=== PATIENT | female | born 1935 | race Caucasian/White ===

== ENCOUNTER 2017-05-11 15:32 | Inpatient (IN) | payer MEDICARE, BC ==
[2017-05-11] MEDS ORDERED: DILTIAZEM 5 MG/ML SOL IV ONE ×2 (16:07→16:16)
[2017-05-11 16:19] LABS: HEMATOCRIT 46 % (35-47); MEAN CORPUSCULAR HGB CONC 35.8 gm/dl (32.0-36.0); MEAN CORPUSCULAR VOLUME 92 fL (81-99)
[2017-05-11] MEDS: SODIUM CHLORIDE 0.9% 1000ML 1,000 ML IV SCH ×3 (16:20→19:14)
[2017-05-11] MEDS ORDERED: METOPROLOL TARTRATE 5 MG/5 ML SOL IV ONE ×2 (16:33→16:35)
[2017-05-11 16:34] LABS: BASOPHILS % (MANUAL) 0 % (0-3); EOSINOPHILS % (MANUAL) 0 % (0-9); LYMPHOCYTES % (MANUAL) 24 % (10-50); NORMAL RBCS PRESENT
[2017-05-11 16:35] LABS: ALBUMIN 2.6 gm/dl (3.4-5.0); ALT 39 IU/L (14-63); CALCIUM 9.2 mg/dl (8.5-10.1); GLOM FILT RATE 59 mL/min (>60); POTASSIUM 3.8 mMol/L (3.5-5.1); SODIUM 137 mMol/L (136-145); THYROID STIMULATING HORMONE 3.091 uIU/ml (0.358-3.740)
[2017-05-11] MEDS ORDERED: CEFTRIAXONE 1 GM PDS 1 GM in SODIUM CHLORIDE 0.9% 100 ML 100 ML IV ONE (17:17)
[2017-05-11] MEDS ORDERED: SODIUM CHLORIDE 0.9% 100 ML SOL IV SCH (17:30)
[2017-05-11] MEDS ORDERED: CEFTRIAXONE 1 GM (PREMIX) 1 GM/50 ML SOL IV SCH (17:30)
[2017-05-11] MEDS: WARFARIN SODIUM 2.5 MG TAB PO SCH (17:51)
[2017-05-11 17:59] LABS: APPEARANCE,URINE Clear; BILIRUBIN,URINE NEGATIVE (NEGATIVE); COLOR,URINE Light yellow; GLUCOSE, URINE (UA) NEGATIVE (NEGATIVE); KETONES,URINE NEGATIVE (NEGATIVE); LEUKOCYTE ESTERASE ,URINE NEGATIVE (NEGATIVE); NITRATE,URINE NEGATIVE (NEGATIVE); OCCULT BLOOD,URINE TRACE INTACT (NEG-TRACE); UROBILINOGEN,URINE 0.2 (0.2-1.0 EU)
[2017-05-11 18:25] LABS: RBC,URINE 0-2 (0-3AV/HPF)
[2017-05-11 18:26] LABS: WBC,URINE 0-2 (0-5AV/HPF)
[2017-05-11] MEDS: DILTIAZEM ER 120 MG C24 PO SCH (18:39)
[2017-05-11] MEDS: METOPROLOL TARTRATE 5 MG/5 ML SOL IV ONE ×2 (18:51→19:08)
[2017-05-11] MEDS ORDERED: POTASSIUM CHLORIDE 2 MEQ/ML SOL IV ONE (20:11)
[2017-05-11] MEDS ORDERED: DILTIAZEM 5 MG/ML 125 MG in SODIUM CHLORIDE 0.9% 100 ML 100 ML IV SCH (20:15)
[2017-05-11] MEDS: SOTALOL HYDROCHLORIDE PO SCH (20:29)
[2017-05-11] MEDS ORDERED: ZOLPIDEM TARTRATE 5 MG TAB PO ONE (21:36)
[2017-05-12] MEDS: SODIUM CHLORIDE/KCL 20MEQ 1,000 ML IV SCH ×2 (05:14→15:28)
[2017-05-12] MEDS: SODIUM CHLORIDE 0.9% 1000ML 1,000 ML IV SCH ×3 (07:23→07:27)
[2017-05-12 07:43] LABS: ALBUMIN 2.4 gm/dl (3.4-5.0); ALT 31 IU/L (14-63); CALCIUM 8.6 mg/dl (8.5-10.1); GLOM FILT RATE 76 mL/min (>60); POTASSIUM 4.1 mMol/L (3.5-5.1); SODIUM 142 mMol/L (136-145)
[2017-05-12 08:16] VITALS: RESP 18
[2017-05-12] MEDS: SOTALOL HYDROCHLORIDE PO SCH ×2 (08:42→20:48)
[2017-05-12] MEDS: CITALOPRAM 20 MG TAB PO SCH (08:43)
[2017-05-12] MEDS: AMLODIPINE 5 MG TAB PO SCH (08:43)
[2017-05-12] MEDS: ATORVASTATIN 10 MG TAB PO SCH (08:43)
[2017-05-12] MEDS: DILTIAZEM ER 120 MG C24 PO SCH (08:45)
[2017-05-12] MEDS ORDERED: ZOLPIDEM TARTRATE 5 MG TAB PO PRN (09:54)
[2017-05-12] MEDS: CEPHALEXIN 250 MG/5 ML BOTTLE PO SCH ×2 (12:20→17:44)
[2017-05-12] MEDS: WARFARIN SODIUM 2.5 MG TAB PO SCH (17:43)
[2017-05-13] MEDS: SODIUM CHLORIDE/KCL 20MEQ 1,000 ML IV SCH (00:08)
[2017-05-13] MEDS: CEPHALEXIN 250 MG/5 ML BOTTLE PO SCH ×2 (00:08→06:06)
[2017-05-13 08:49] VITALS: BP 117/77; PULSE 69; TEMP 97.9; O2SAT 95
[2017-05-13] MEDS: AMLODIPINE 5 MG TAB PO SCH (08:53)
[2017-05-13] MEDS: ATORVASTATIN 10 MG TAB PO SCH (08:53)
[2017-05-13] MEDS: CITALOPRAM 20 MG TAB PO SCH (08:53)
[2017-05-13] MEDS: DILTIAZEM ER 120 MG C24 PO SCH (08:53)
[2017-05-13] MEDS: SOTALOL HYDROCHLORIDE PO SCH (08:53)
[2017-05-13] MEDS ORDERED: WARFARIN SODIUM 2.5 MG TAB PO SCH (18:00)
== END 2017-05-13 11:00 | disposition home or self-care (01) | DRG 309 ==
LOC: ED 15:32 → UNDOADMIN 17:11 → ACUTE CARE 17:11
PROVIDERS: ADMIT Family Medicine; ATTEND Family Medicine
PROC: F01ZDZZ Gait and/or Balance Assessment (ICD-10-PCS; principal; 2017-05-12)
PROC: F01ZBZZ Bed Mobility Assessment (ICD-10-PCS; 2017-05-12)
PROC: F01ZCZZ Transfer Assessment (ICD-10-PCS; 2017-05-12)
DX: I48.91 Unspecified atrial fibrillation (principal); L03.312 Cellulitis of back [any part except buttock and flank]; I95.9 Hypotension, unspecified; Z79.01 Long term (current) use of anticoagulants; R00.1 Bradycardia, unspecified
CPT/HCPCS: 36415; 80053; 81001; 83735; 84443; 84484; 85007; 85027; 85610; 85730; 93005; 93012; 96365; 96374; 96375; 99070; 99221; 99285; J0696; J3480

== ENCOUNTER 2017-05-25 12:44 | Emergency (ER) | payer MEDICARE, BC ==
[2017-05-25] MEDS ORDERED: NITROGLYCERIN 0.4 MG TAB SL PRN (12:58)
[2017-05-25] MEDS ORDERED: METOPROLOL TARTRATE 5 MG/5 ML SOL IV PRN (12:58)
[2017-05-25] MEDS ORDERED: SODIUM CHLORIDE 0.9% FLUSH 10 ML SOL IV PRN (12:58)
[2017-05-25] MEDS ORDERED: ASPIRIN 81 MG CHEWABLE CTB PO STA (12:58)
[2017-05-25] MEDS ORDERED: METOPROLOL TARTRATE 5 MG/5 ML SOL IV ONE (13:01)
[2017-05-25] MEDS ORDERED: ASPIRIN 81 MG CHEWABLE CTB ONE (13:04)
[2017-05-25 13:06] LABS: HEMATOCRIT 45 % (35-47); MEAN CORPUSCULAR HGB CONC 34.6 gm/dl (32.0-36.0); MEAN CORPUSCULAR VOLUME 93 fL (81-99)
[2017-05-25 13:24] LABS: CALCIUM 8.9 mg/dl (8.5-10.1); GLOM FILT RATE 55 mL/min (>60); POTASSIUM 3.9 mMol/L (3.5-5.1); SODIUM 137 mMol/L (136-145)
[2017-05-25 13:30] LABS: BASOPHILS % (MANUAL) 0 % (0-3); EOSINOPHILS % (MANUAL) 0 % (0-9); LYMPHOCYTES % (MANUAL) 4 % (10-50); NORMAL RBCS PRESENT
[2017-05-25 14:04] LABS: APPEARANCE,URINE Clear; BILIRUBIN,URINE NEGATIVE (NEGATIVE); COLOR,URINE Yellow; GLUCOSE, URINE (UA) NEGATIVE (NEGATIVE); KETONES,URINE NEGATIVE (NEGATIVE); LEUKOCYTE ESTERASE ,URINE NEGATIVE (NEGATIVE); NITRATE,URINE NEGATIVE (NEGATIVE); OCCULT BLOOD,URINE NEGATIVE (NEG-TRACE); UROBILINOGEN,URINE 0.2 (0.2-1.0 EU)
[2017-05-25 14:12] VITALS: O2SAT 94
[2017-05-25 14:13] LABS: RBC,URINE NEGATIVE (0-3AV/HPF); WBC,URINE NEGATIVE (0-5AV/HPF)
[2017-05-25 14:17] VITALS: TEMP 99.4
[2017-05-25 14:58] VITALS: BP 106/70; PULSE 61; RESP 20
== END 2017-05-25 14:51 | disposition home or self-care (01) | DRG 309 ==
LOC: ED 12:44
DX: I48.91 Unspecified atrial fibrillation (principal); L03.312 Cellulitis of back [any part except buttock and flank]
CPT/HCPCS: 71010; 80048; 81001; 82550; 84484; 85007; 85027; 85610; 85730; 93005; 99285

== ENCOUNTER 2017-05-26 09:18 | Emergency (ER) | payer MEDICARE, BC ==
[2017-05-26 09:36] VITALS: TEMP 97.6; O2SAT 97
[2017-05-26 10:13] VITALS: BP 147/85; PULSE 69; RESP 18
== END 2017-05-26 10:05 | disposition home or self-care (01) | DRG 880 ==
LOC: ED 09:18
DX: F41.9 Anxiety disorder, unspecified (principal)
CPT/HCPCS: 93005; 99282; 99283

== ENCOUNTER 2017-11-22 13:56 | Inpatient (IN) | payer MEDICARE, BC ==
[2017-11-22] MEDS ORDERED: METOPROLOL SUCCINATE 50 MG ER TAB PO SCH (14:00)
[2017-11-22] MEDS ORDERED: METOPROLOL TARTRATE 50 MG TAB ONE (14:02)
[2017-11-22] MEDS ORDERED: METOPROLOL TARTRATE 5 MG/5 ML SOL IV ONE ×2 (14:02→14:23)
[2017-11-22] MEDS: METOPROLOL TARTRATE 5 MG/5 ML SOL IV SCH ×3 (14:10→14:25)
[2017-11-22 14:12] LABS: BASOPHILS % (AUTO) 1 % (0-3); EOSINOPHILS % (AUTO) 0 % (0-9); HEMATOCRIT 44 % (35-47); HEMOGLOBIN 14.7 gm/dl (12.0-15.5); LYMPHOCYTES % (AUTO) 16.4 % (10-50); MEAN CORPUSCULAR HEMOGLOBIN 32.7 pg (27.0-32.0); MEAN CORPUSCULAR HGB CONC 33.9 gm/dl (32.0-36.0); MEAN CORPUSCULAR VOLUME 97 fL (81-99); MONOCYTES % (AUTO) 9.1 % (0-12); NEUTROPHILS % (AUTO) 73.2 % (37-80)
[2017-11-22] MEDS ORDERED: METOPROLOL TARTRATE 50 MG TAB PO SCH (14:15)
[2017-11-22 14:21] LABS: INR 3.42 (0.86-1.12)
[2017-11-22 14:32] LABS: BLOOD UREA NITROGEN 13 mg/dl (7-18); CALCIUM 8.6 mg/dl (8.5-10.1); CHLORIDE 104 mMol/L (98-107); CREATININE 0.82 mg/dl (0.60-1.00); GLOM FILT RATE 67 mL/min (>60); GLUCOSE 121 mg/dl (74-106); POTASSIUM 4.1 mMol/L (3.5-5.1); SODIUM 140 mMol/L (136-145); TROP I < 0.017 ng/ml (0.000-0.056)
[2017-11-22] MEDS ORDERED: DILTIAZEM 5 MG/ML SOL IV ONE ×4 (14:33→20:47)
[2017-11-22] MEDS ORDERED: SODIUM CHLORIDE 0.9% 1000 ML SOL IV SCH (14:45)
[2017-11-22] MEDS ORDERED: DILTIAZEM 5 MG/ML SOL IV PRN (17:19)
[2017-11-22 19:51] VITALS: TEMP 99.2
[2017-11-22] MEDS: TEMAZEPAM 15MG 15 MG CAP PO PRN ×2 (20:05→22:37)
[2017-11-22] MEDS: SOTALOL HYDROCHLORIDE PO SCH (20:06)
[2017-11-22] MEDS ORDERED: SOTALOL HYDROCHLORIDE PO SCH (21:00)
[2017-11-22] MEDS: DILTIAZEM 5 MG/ML 125 MG in SODIUM CHLORIDE 0.9% 100 ML 100 ML IV SCH (21:13)
[2017-11-22] MEDS ORDERED: SODIUM CHLORIDE 0.9% 1000ML 1,000 ML IV SCH (21:15)
[2017-11-22 22:32] VITALS: RESP 20
[2017-11-23] MEDS ORDERED: DILTIAZEM 5 MG/ML SOL IV ONE ×2 (07:16→07:22)
[2017-11-23 07:17] LABS: CALCIUM 8.3 mg/dl (8.5-10.1); CARBON DIOXIDE 25.9 mEq/L (21-32); CREATININE 0.65 mg/dl (0.60-1.00)
[2017-11-23 07:29] LABS: INR 2.39 (0.86-1.12)
[2017-11-23] MEDS: DILTIAZEM 5 MG/ML 125 MG in SODIUM CHLORIDE 0.9% 100 ML 100 ML IV SCH (07:42)
[2017-11-23 07:55] VITALS: BP 130/96
[2017-11-23 08:01] VITALS: O2SAT 93
[2017-11-23] MEDS ORDERED: WARFARIN SODIUM 2.5 MG TAB PO SCH ×2 (09:00→18:00)
[2017-11-23] MEDS ORDERED: CITALOPRAM 20 MG TAB PO SCH (09:00)
[2017-11-23] MEDS ORDERED: ATORVASTATIN 10 MG TAB PO SCH (09:00)
[2017-11-23] MEDS: SOTALOL HYDROCHLORIDE PO SCH (09:01)
[2017-11-23 09:05] VITALS: PULSE 88
== END 2017-11-23 09:55 | disposition short-term general hospital (02) | DRG 310 ==
LOC: ED 13:56 → ACUTE CARE 15:32
PROVIDERS: ADMIT Family Medicine; ATTEND Family Medicine
DX: I48.91 Unspecified atrial fibrillation (principal); R79.1 Abnormal coagulation profile; R06.00 Dyspnea, unspecified; E78.5 Hyperlipidemia, unspecified; Z79.01 Long term (current) use of anticoagulants; G47.33 Obstructive sleep apnea (adult) (pediatric)
CPT/HCPCS: 36415; 71045; 80048; 84484; 85025; 85610; 93005; 93012; 96365; 96374; 96375; 99284; 99285; A9270-GY; J3490

== ENCOUNTER 2018-09-23 12:03 | Day surgery (SDC) | payer MEDICARE, BC ==
[2018-09-23] MEDS ORDERED: BUPIVACAINE HCL 0.5% MPF 10 ML SOL ONE (12:49)
[2018-09-23] MEDS ORDERED: LIDOCAINE HCL 1% MPF 30 SOL ONE (12:49)
[2018-09-23 13:28] VITALS: BP 128/75; PULSE 73; RESP 20; TEMP 97.9; O2SAT 90
== END 2018-09-23 13:43 | disposition home or self-care (01) | DRG 556 ==
LOC: SURG 12:03
PROVIDERS: ATTEND Nurse Anesthetist, Certified Registered
DX: M25.562 Pain in left knee (principal)
CPT/HCPCS: J2001

== ENCOUNTER 2018-10-15 10:37 | Day surgery (SDC) | payer MEDICARE, BC ==
[~2018-10-15 10:37] MED LIST: LIDOCAINE HCL 1% MPF 30 SOL ONE; PROPOFOL 10 MG/ML 200 MG/20 ML EMU IV ONE; PROPOFOL 500 MG/50 ML EMU IV ONE
[2018-10-15] MEDS ORDERED: MIDAZOLAM 2 MG/2 ML SOL ONE (11:01)
[2018-10-15] MEDS ORDERED: TRIAMCINOLONE ACETONIDE 40 MG/ML SUS ONE (11:06)
[2018-10-15] MEDS ORDERED: LIDOCAINE HCL 1% MPF 30 SOL ONE (11:06)
[2018-10-15] MEDS ORDERED: BUPIVACAINE HCL 0.25% MPF 30 ML SOL INFIL ONE (11:06)
[2018-10-15] MEDS ORDERED: SODIUM CHLORIDE 0.9% FLUSH 10 ML SOL IV ONE (11:12)
[2018-10-15] MEDS: FENTANYL 100MCG/2ML SOL ONE ×2 (11:16→11:50)
[2018-10-15 12:12] VITALS: PULSE 76; RESP 18; TEMP 97.7; O2SAT 97
[2018-10-15 12:14] VITALS: BP 140/80
== END 2018-10-15 12:32 | disposition home or self-care (01) | DRG 556 ==
LOC: SURG 10:37
PROVIDERS: ATTEND Nurse Anesthetist, Certified Registered
DX: M25.562 Pain in left knee (principal)
CPT/HCPCS: 76000; J2250; J3010; J2001; J2704; J3300

== ENCOUNTER 2018-11-06 20:46 | Inpatient (IN) | payer MEDICARE, BC ==
[2018-11-06] MEDS ORDERED: MORPHINE SULFATE 10 MG/ML SOL ONE (21:16)
[2018-11-06] MEDS ORDERED: MORPHINE SULFATE 10 MG/ML SOL IV ONE (21:17)
[2018-11-06] MEDS ORDERED: FENTANYL 100MCG/2ML SOL IV ONE (22:15)
[2018-11-06] MEDS ORDERED: FENTANYL 100MCG/2ML SOL ONE (22:15)
[2018-11-06] MEDS ORDERED: TDAP VACCINE 0.5 ML SUS IM ONE ×2 (23:09→23:36)
[2018-11-06] MEDS ORDERED: MORPHINE SULFATE 10 MG/ML SOL IV PRN (23:38)
[2018-11-06] MEDS ORDERED: FENTANYL 100MCG/2ML SOL IV PRN (23:40)
[2018-11-06] MEDS ORDERED: ONDANSETRON HCL 4 MG/2 ML SOL IV PRN (23:41)
[2018-11-06] MEDS ORDERED: WARFARIN SODIUM 2.5 MG TAB PO SCH (23:45)
[2018-11-07] MEDS ORDERED: APAP/HYDROCODONE 1 EACH TABLET PO PRN (06:31)
[2018-11-07] MEDS ORDERED: APAP/HYDROCODONE 1 EACH TABLET ONE (06:36)
[2018-11-07 07:37] LABS: INR 1.56 (0.86-1.12)
[2018-11-07] MEDS: AMLODIPINE 5 MG TAB PO SCH (09:44)
[2018-11-07] MEDS: DULOXETINE HCL 30 MG CAPSULE.DR PO SCH (09:44)
[2018-11-07] MEDS: LOSARTAN POTASSIUM 50 MG TAB PO SCH (09:44)
[2018-11-07] MEDS: VIT C PO SCH (09:45)
[2018-11-07] MEDS: [UNRECOGNIZED DRUG - OTHER] PO SCH (09:45)
[2018-11-07] MEDS: ZEAXANTHIN PO SCH (09:45)
[2018-11-07] MEDS: ZINC PO SCH (09:45)
[2018-11-07] MEDS: LUTEIN PO SCH (09:45)
[2018-11-07] MEDS: OXYCODONE HYDROCHLORIDE 5 MG TAB PO PRN ×2 (10:34→21:34)
[2018-11-07] MEDS: WARFARIN SODIUM 2.5 MG TAB PO SCH (18:09)
[2018-11-07] MEDS: ATORVASTATIN 10 MG TAB PO SCH (21:33)
[2018-11-08] MEDS: ACETAMINOPHEN 325 MG PO PRN ×3 (01:15→23:50)
[2018-11-08] MEDS: OXYCODONE HYDROCHLORIDE 5 MG TAB PO PRN ×3 (04:52→21:23)
[2018-11-08] MEDS: LOSARTAN POTASSIUM 50 MG TAB PO SCH (08:48)
[2018-11-08] MEDS: AMLODIPINE 5 MG TAB PO SCH (08:49)
[2018-11-08] MEDS: ZEAXANTHIN PO SCH ×2 (08:49→08:54)
[2018-11-08] MEDS: [UNRECOGNIZED DRUG - OTHER] PO SCH ×2 (08:49→08:54)
[2018-11-08] MEDS: VIT C PO SCH ×2 (08:49→08:54)
[2018-11-08] MEDS: DULOXETINE HCL 30 MG CAPSULE.DR PO SCH (08:49)
[2018-11-08] MEDS: LUTEIN PO SCH ×2 (08:49→08:54)
[2018-11-08] MEDS: ZINC PO SCH ×2 (08:49→08:54)
[2018-11-08 15:18] LABS: INR 1.59 (0.86-1.12)
[2018-11-08] MEDS: SODIUM CHLORIDE 0.9% FLUSH 10 ML SOL IV SCH ×2 (16:51→20:13)
[2018-11-08] MEDS ORDERED: WARFARIN SODIUM 2.5 MG TAB PO ONE (18:00)
[2018-11-08] MEDS: DOCUSATE SODIUM 100 MG SGL PO PRN (20:12)
[2018-11-08] MEDS: ATORVASTATIN 10 MG TAB PO SCH (20:12)
[2018-11-09] MEDS: SODIUM CHLORIDE 0.9% FLUSH 10 ML SOL IV SCH ×4 (00:42→23:34)
[2018-11-09] MEDS: OXYCODONE HYDROCHLORIDE 5 MG TAB PO PRN ×3 (03:25→21:05)
[2018-11-09] MEDS: ACETAMINOPHEN 325 MG PO PRN ×3 (06:16→23:33)
[2018-11-09 08:09] LABS: CALCIUM 9.1 mg/dl (8.5-10.1); CARBON DIOXIDE 27.2 mEq/L (21-32); CREATININE 0.75 mg/dl (0.60-1.00); POTASSIUM 3.8 mMol/L (3.5-5.1)
[2018-11-09] MEDS: LOSARTAN POTASSIUM 50 MG TAB PO SCH (08:25)
[2018-11-09] MEDS: VIT C PO SCH (08:26)
[2018-11-09] MEDS: LUTEIN PO SCH (08:26)
[2018-11-09] MEDS: [UNRECOGNIZED DRUG - OTHER] PO SCH (08:26)
[2018-11-09] MEDS: ZINC PO SCH (08:26)
[2018-11-09] MEDS: AMLODIPINE 5 MG TAB PO SCH (08:26)
[2018-11-09] MEDS: ZEAXANTHIN PO SCH (08:26)
[2018-11-09] MEDS: DULOXETINE HCL 30 MG CAPSULE.DR PO SCH (08:28)
[2018-11-09] MEDS: POLYETHYLENE GLYCOL 17 GM/1 TBS PDS PO SCH ×2 (08:29→21:04)
[2018-11-09 08:55] LABS: INR 1.71 (0.86-1.12)
[2018-11-09] MEDS ORDERED: ENOXAPARIN 40 MG SOL SC SCH (13:45)
[2018-11-09] MEDS ORDERED: WARFARIN SODIUM 1 MG TAB PO SCH (21:00)
[2018-11-09] MEDS: WARFARIN SODIUM 2.5 MG TAB PO SCH (21:04)
[2018-11-09] MEDS: ATORVASTATIN 10 MG TAB PO SCH (21:05)
[2018-11-09] MEDS: DOCUSATE SODIUM 100 MG SGL PO PRN (23:33)
[2018-11-10] MEDS ORDERED: FENTANYL 100MCG/2ML SOL ONE (02:19)
[2018-11-10] MEDS: SODIUM CHLORIDE 0.9% FLUSH 10 ML SOL IV SCH ×4 (02:24→23:15)
[2018-11-10] MEDS: ACETAMINOPHEN 325 MG PO PRN ×3 (05:10→23:41)
[2018-11-10 07:43] LABS: INR 2.21 (0.86-1.12)
[2018-11-10] MEDS: LOSARTAN POTASSIUM 50 MG TAB PO SCH (09:45)
[2018-11-10] MEDS: ZEAXANTHIN PO SCH (09:45)
[2018-11-10] MEDS: ZINC PO SCH (09:45)
[2018-11-10] MEDS: OXYCODONE HYDROCHLORIDE 5 MG TAB PO PRN ×2 (09:45→22:10)
[2018-11-10] MEDS: VIT C PO SCH (09:45)
[2018-11-10] MEDS: [UNRECOGNIZED DRUG - OTHER] PO SCH (09:45)
[2018-11-10] MEDS: LUTEIN PO SCH (09:45)
[2018-11-10] MEDS: POLYETHYLENE GLYCOL 17 GM/1 TBS PDS PO SCH ×2 (09:45→20:34)
[2018-11-10] MEDS: AMLODIPINE 5 MG TAB PO SCH (09:45)
[2018-11-10] MEDS: DULOXETINE HCL 30 MG CAPSULE.DR PO SCH (09:47)
[2018-11-10] MEDS ORDERED: WARFARIN SODIUM 2.5 MG TAB PO SCH ×2 (18:00→23:38)
[2018-11-10] MEDS ORDERED: WARFARIN SODIUM 1 MG TAB PO ONE (19:45)
[2018-11-10] MEDS: ATORVASTATIN 10 MG TAB PO SCH (20:30)
[2018-11-10] MEDS: DOCUSATE SODIUM 100 MG SGL PO PRN (20:38)
[2018-11-11] MEDS: OXYCODONE HYDROCHLORIDE 5 MG TAB PO PRN (04:00)
[2018-11-11 08:19] VITALS: O2SAT 95
[2018-11-11 08:21] VITALS: BP 154/87; PULSE 70; RESP 18; TEMP 96.7
[2018-11-11] MEDS: SODIUM CHLORIDE 0.9% FLUSH 10 ML SOL IV SCH (09:19)
[2018-11-11] MEDS: DULOXETINE HCL 30 MG CAPSULE.DR PO SCH (09:19)
[2018-11-11] MEDS: LOSARTAN POTASSIUM 50 MG TAB PO SCH (09:19)
[2018-11-11] MEDS: [UNRECOGNIZED DRUG - OTHER] PO SCH (09:21)
[2018-11-11] MEDS: VIT C PO SCH (09:21)
[2018-11-11] MEDS: ZEAXANTHIN PO SCH (09:21)
[2018-11-11] MEDS: LUTEIN PO SCH (09:21)
[2018-11-11] MEDS: AMLODIPINE 5 MG TAB PO SCH (09:21)
[2018-11-11] MEDS: ZINC PO SCH (09:21)
[2018-11-11] MEDS: POLYETHYLENE GLYCOL 17 GM/1 TBS PDS PO SCH (09:21)
== END 2018-11-11 10:53 | disposition swing bed (61) | DRG 536 ==
LOC: ED 20:46 → ACUTE CARE 23:23
PROVIDERS: ADMIT Family Medicine; ATTEND Family Medicine
PROC: F01L0FZ Muscle Performance Assessment of Musculoskeletal System - Lower Back / Lower Extremity using Assistive, Adaptive, Supportive or Protective Equipment (ICD-10-PCS; principal; 2018-11-07)
PROC: F01L5YZ Range of Motion and Joint Integrity Assessment of Musculoskeletal System - Lower Back / Lower Extremity using Other Equipment (ICD-10-PCS; 2018-11-07)
DX: S32.82XA Multiple fractures of pelvis without disruption of pelvic ring, initial encounter for closed fracture (principal); W19.XXXA Unspecified fall, initial encounter; R40.2362 Coma scale, best motor response, obeys commands, at arrival to emergency department; R40.2142 Coma scale, eyes open, spontaneous, at arrival to emergency department; R40.2252 Coma scale, best verbal response, oriented, at arrival to emergency department; I48.2 Chronic atrial fibrillation; Z79.01 Long term (current) use of anticoagulants
CPT/HCPCS: 36415; 72131; 72192; 80048; 85610; 90471; 90715; 94762; 96374; 96375; 99222; 99231; 99284; G0390; J1650; J2270; J2405; J3010; A9270-GY

== ENCOUNTER 2018-11-11 10:57 | Inpatient (IN) | payer MEDICARE, BC ==
[2018-11-11] MEDS: ACETAMINOPHEN 325 MG PO PRN (12:30)
[2018-11-11] MEDS ORDERED: WARFARIN SODIUM 2.5 MG TAB PO SCH (13:15)
[2018-11-11] MEDS: OXYCODONE HYDROCHLORIDE 5 MG TAB PO PRN ×2 (14:11→21:39)
[2018-11-11] MEDS: DOCUSATE SODIUM 100 MG SGL PO PRN (14:11)
[2018-11-11] MEDS: ATORVASTATIN 10 MG TAB PO SCH (21:38)
[2018-11-11] MEDS: POLYETHYLENE GLYCOL 17 GM/1 TBS PDS PO PRN (21:39)
[2018-11-12] MEDS: OXYCODONE HYDROCHLORIDE 5 MG TAB PO PRN ×3 (03:23→21:32)
[2018-11-12] MEDS: ACETAMINOPHEN 325 MG PO PRN ×2 (05:00→14:26)
[2018-11-12] MEDS: LOSARTAN POTASSIUM 50 MG TAB PO SCH (09:00)
[2018-11-12] MEDS: ZINC PO SCH ×2 (09:00→09:07)
[2018-11-12] MEDS: LUTEIN PO SCH ×2 (09:00→09:07)
[2018-11-12] MEDS: VIT C PO SCH ×2 (09:00→09:07)
[2018-11-12] MEDS: DULOXETINE HCL 30 MG CAPSULE.DR PO SCH (09:00)
[2018-11-12] MEDS: AMLODIPINE 5 MG TAB PO SCH (09:00)
[2018-11-12] MEDS: ZEAXANTHIN PO SCH ×2 (09:00→09:07)
[2018-11-12] MEDS: [UNRECOGNIZED DRUG - OTHER] PO SCH ×2 (09:00→09:07)
[2018-11-12] MEDS: DOCUSATE SODIUM 100 MG SGL PO PRN (09:03)
[2018-11-12] MEDS: POLYETHYLENE GLYCOL 17 GM/1 TBS PDS PO PRN (09:04)
[2018-11-12] MEDS ORDERED: BISACODYL 5 MG TAB ECT PO PRN (09:38)
[2018-11-12] MEDS ORDERED: WARFARIN SODIUM 2.5 MG TAB PO SCH (18:00)
[2018-11-12] MEDS: ATORVASTATIN 10 MG TAB PO SCH (21:04)
[2018-11-13] MEDS: ACETAMINOPHEN 325 MG PO PRN ×3 (06:21→23:09)
[2018-11-13 07:45] LABS: INR 2.36 (0.86-1.12)
[2018-11-13] MEDS: LOSARTAN POTASSIUM 50 MG TAB PO SCH (09:20)
[2018-11-13] MEDS: DULOXETINE HCL 30 MG CAPSULE.DR PO SCH (09:20)
[2018-11-13] MEDS: AMLODIPINE 5 MG TAB PO SCH (09:20)
[2018-11-13] MEDS: ZEAXANTHIN PO SCH (09:21)
[2018-11-13] MEDS: LUTEIN PO SCH (09:21)
[2018-11-13] MEDS: VIT C PO SCH (09:21)
[2018-11-13] MEDS: ZINC PO SCH (09:21)
[2018-11-13] MEDS: [UNRECOGNIZED DRUG - OTHER] PO SCH (09:21)
[2018-11-13] MEDS: WARFARIN SODIUM 2.5 MG TAB PO SCH (18:04)
[2018-11-13] MEDS: ATORVASTATIN 10 MG TAB PO SCH (21:32)
[2018-11-13] MEDS: OXYCODONE HYDROCHLORIDE 5 MG TAB PO PRN (21:32)
[2018-11-14] MEDS: LOSARTAN POTASSIUM 50 MG TAB PO SCH (09:04)
[2018-11-14] MEDS: DULOXETINE HCL 30 MG CAPSULE.DR PO SCH (09:04)
[2018-11-14] MEDS: ACETAMINOPHEN 325 MG PO PRN ×2 (09:04→14:50)
[2018-11-14] MEDS: AMLODIPINE 5 MG TAB PO SCH (09:04)
[2018-11-14] MEDS: [UNRECOGNIZED DRUG - OTHER] PO SCH (09:05)
[2018-11-14] MEDS: ZEAXANTHIN PO SCH (09:05)
[2018-11-14] MEDS: VIT C PO SCH (09:05)
[2018-11-14] MEDS: ZINC PO SCH (09:05)
[2018-11-14] MEDS: LUTEIN PO SCH (09:05)
[2018-11-14] MEDS: WARFARIN SODIUM 2.5 MG TAB PO SCH (17:53)
[2018-11-14] MEDS: POLYETHYLENE GLYCOL 17 GM/1 TBS PDS PO PRN (18:32)
[2018-11-14] MEDS: ATORVASTATIN 10 MG TAB PO SCH (20:00)
[2018-11-14] MEDS: OXYCODONE HYDROCHLORIDE 5 MG TAB PO PRN (21:51)
[2018-11-15] MEDS: ACETAMINOPHEN 325 MG PO PRN ×3 (00:19→20:46)
[2018-11-15] MEDS: OXYCODONE HYDROCHLORIDE 5 MG TAB PO PRN ×2 (05:09→22:00)
[2018-11-15] MEDS: ZEAXANTHIN PO SCH (08:07)
[2018-11-15] MEDS: ZINC PO SCH (08:07)
[2018-11-15] MEDS: [UNRECOGNIZED DRUG - OTHER] PO SCH (08:07)
[2018-11-15] MEDS: VIT C PO SCH (08:07)
[2018-11-15] MEDS: LUTEIN PO SCH (08:07)
[2018-11-15] MEDS: DULOXETINE HCL 30 MG CAPSULE.DR PO SCH (08:59)
[2018-11-15] MEDS: LOSARTAN POTASSIUM 50 MG TAB PO SCH (09:00)
[2018-11-15] MEDS: AMLODIPINE 5 MG TAB PO SCH (09:00)
[2018-11-15] MEDS: WARFARIN SODIUM 2.5 MG TAB PO SCH (18:18)
[2018-11-15] MEDS: ATORVASTATIN 10 MG TAB PO SCH (20:46)
[2018-11-16] MEDS: ACETAMINOPHEN 325 MG PO PRN ×4 (02:46→22:05)
[2018-11-16] MEDS: DULOXETINE HCL 30 MG CAPSULE.DR PO SCH (10:45)
[2018-11-16] MEDS: ZINC PO SCH ×2 (10:45→15:07)
[2018-11-16] MEDS: LUTEIN PO SCH ×2 (10:45→15:07)
[2018-11-16] MEDS: VIT C PO SCH ×2 (10:45→15:07)
[2018-11-16] MEDS: [UNRECOGNIZED DRUG - OTHER] PO SCH ×2 (10:45→15:07)
[2018-11-16] MEDS: ZEAXANTHIN PO SCH ×2 (10:45→15:07)
[2018-11-16] MEDS: AMLODIPINE 5 MG TAB PO SCH (10:46)
[2018-11-16] MEDS: LOSARTAN POTASSIUM 50 MG TAB PO SCH (10:46)
[2018-11-16] MEDS: WARFARIN SODIUM 2.5 MG TAB PO SCH (17:38)
[2018-11-16] MEDS: OXYCODONE HYDROCHLORIDE 5 MG TAB PO PRN (20:54)
[2018-11-16] MEDS: ATORVASTATIN 10 MG TAB PO SCH (20:54)
[2018-11-17] MEDS: ACETAMINOPHEN 325 MG PO PRN ×3 (04:01→22:23)
[2018-11-17 09:26] LABS: INR 1.61 (0.86-1.12)
[2018-11-17] MEDS: AMLODIPINE 5 MG TAB PO SCH (09:33)
[2018-11-17] MEDS: LOSARTAN POTASSIUM 50 MG TAB PO SCH (09:33)
[2018-11-17] MEDS: DULOXETINE HCL 30 MG CAPSULE.DR PO SCH (09:33)
[2018-11-17] MEDS: POLYETHYLENE GLYCOL 17 GM/1 TBS PDS PO PRN (09:37)
[2018-11-17] MEDS ORDERED: WARFARIN SODIUM 2.5 MG TAB PO SCH (13:13)
[2018-11-17] MEDS: WARFARIN SODIUM 2.5 MG TAB PO SCH (18:33)
[2018-11-17] MEDS: OXYCODONE HYDROCHLORIDE 5 MG TAB PO PRN (18:33)
[2018-11-17] MEDS: ATORVASTATIN 10 MG TAB PO SCH (21:15)
[2018-11-18] MEDS: OXYCODONE HYDROCHLORIDE 5 MG TAB PO PRN ×2 (02:45→22:09)
[2018-11-18] MEDS: LOSARTAN POTASSIUM 50 MG TAB PO SCH (08:07)
[2018-11-18] MEDS: DULOXETINE HCL 30 MG CAPSULE.DR PO SCH (08:07)
[2018-11-18] MEDS: AMLODIPINE 5 MG TAB PO SCH (08:07)
[2018-11-18] MEDS: TRAMADOL HYDROCHLORIDE 50 MG TAB PO PRN (09:55)
[2018-11-18] MEDS: ACETAMINOPHEN 325 MG PO PRN ×2 (12:42→19:03)
[2018-11-18] MEDS: WARFARIN SODIUM 2.5 MG TAB PO SCH (19:02)
[2018-11-18] MEDS: ATORVASTATIN 10 MG TAB PO SCH (21:14)
[2018-11-19] MEDS: TRAMADOL HYDROCHLORIDE 50 MG TAB PO PRN (02:47)
[2018-11-19] MEDS: ACETAMINOPHEN 325 MG PO PRN ×4 (02:47→22:09)
[2018-11-19] MEDS: LOSARTAN POTASSIUM 50 MG TAB PO SCH (09:29)
[2018-11-19] MEDS: AMLODIPINE 5 MG TAB PO SCH (09:29)
[2018-11-19] MEDS: DULOXETINE HCL 30 MG CAPSULE.DR PO SCH (09:29)
[2018-11-19] MEDS: OXYCODONE HYDROCHLORIDE 5 MG TAB PO PRN ×2 (10:37→21:32)
[2018-11-19] MEDS ORDERED: HEPARIN 500 Unit PRE-FILL 100 U/ML SOL IV ONE (16:30)
[2018-11-19] MEDS: WARFARIN SODIUM 2.5 MG TAB PO SCH (17:37)
[2018-11-19] MEDS: ATORVASTATIN 10 MG TAB PO SCH (21:32)
[2018-11-20] MEDS: ACETAMINOPHEN 325 MG PO PRN ×3 (04:17→19:57)
[2018-11-20 07:15] LABS: INR 1.56 (0.86-1.12)
[2018-11-20] MEDS: OXYCODONE HYDROCHLORIDE 5 MG TAB PO PRN ×3 (08:35→22:22)
[2018-11-20] MEDS: DULOXETINE HCL 30 MG CAPSULE.DR PO SCH (08:36)
[2018-11-20] MEDS: LOSARTAN POTASSIUM 50 MG TAB PO SCH (08:36)
[2018-11-20] MEDS: AMLODIPINE 5 MG TAB PO SCH (08:36)
[2018-11-20] MEDS ORDERED: WARFARIN SODIUM 7.5 MG TAB PO SCH (18:00)
[2018-11-20] MEDS: ATORVASTATIN 10 MG TAB PO SCH (20:19)
[2018-11-21] MEDS: ACETAMINOPHEN 325 MG PO PRN ×3 (03:18→20:09)
[2018-11-21] MEDS: LOSARTAN POTASSIUM 50 MG TAB PO SCH (08:42)
[2018-11-21] MEDS: DULOXETINE HCL 30 MG CAPSULE.DR PO SCH (08:42)
[2018-11-21] MEDS: AMLODIPINE 5 MG TAB PO SCH (08:42)
[2018-11-21] MEDS: OXYCODONE HYDROCHLORIDE 5 MG TAB PO PRN ×2 (12:51→22:35)
[2018-11-21] MEDS: WARFARIN SODIUM 2.5 MG TAB PO SCH (17:25)
[2018-11-21] MEDS: ATORVASTATIN 10 MG TAB PO SCH (20:10)
[2018-11-22] MEDS: ACETAMINOPHEN 325 MG PO PRN ×2 (02:41→16:04)
[2018-11-22] MEDS: LOSARTAN POTASSIUM 50 MG TAB PO SCH (09:04)
[2018-11-22] MEDS: OXYCODONE HYDROCHLORIDE 5 MG TAB PO PRN ×2 (09:04→21:54)
[2018-11-22] MEDS: DULOXETINE HCL 30 MG CAPSULE.DR PO SCH (09:05)
[2018-11-22] MEDS: AMLODIPINE 5 MG TAB PO SCH (09:05)
[2018-11-22] MEDS: WARFARIN SODIUM 2.5 MG TAB PO SCH (17:34)
[2018-11-22] MEDS: ATORVASTATIN 10 MG TAB PO SCH (21:25)
[2018-11-23] MEDS: ACETAMINOPHEN 325 MG PO PRN ×3 (02:38→19:41)
[2018-11-23] MEDS: OXYCODONE HYDROCHLORIDE 5 MG TAB PO PRN ×2 (07:08→21:51)
[2018-11-23] MEDS: LOSARTAN POTASSIUM 50 MG TAB PO SCH (09:41)
[2018-11-23] MEDS: AMLODIPINE 5 MG TAB PO SCH (09:41)
[2018-11-23] MEDS: DULOXETINE HCL 30 MG CAPSULE.DR PO SCH (09:41)
[2018-11-23] MEDS: WARFARIN SODIUM 2.5 MG TAB PO SCH (17:34)
[2018-11-23 21:06] VITALS: RESP 16
[2018-11-23] MEDS: ATORVASTATIN 10 MG TAB PO SCH (21:07)
[2018-11-24] MEDS: ACETAMINOPHEN 325 MG PO PRN ×2 (01:28→12:35)
[2018-11-24] MEDS: OXYCODONE HYDROCHLORIDE 5 MG TAB PO PRN (04:26)
[2018-11-24 07:28] LABS: INR 1.29 (0.86-1.12)
[2018-11-24 09:04] VITALS: TEMP 98.4
[2018-11-24 09:12] VITALS: BP 121/75; PULSE 74; O2SAT 98
[2018-11-24] MEDS: LOSARTAN POTASSIUM 50 MG TAB PO SCH (09:13)
[2018-11-24] MEDS: AMLODIPINE 5 MG TAB PO SCH (09:13)
[2018-11-24] MEDS: DULOXETINE HCL 30 MG CAPSULE.DR PO SCH (09:13)
== END 2018-11-24 13:00 | disposition home or self-care (01) | DRG 561 ==
LOC: ACUTE CARE 10:57 → UNDOADMIN 10:57 → ACUTE CARE 10:58
PROVIDERS: ADMIT Family Medicine; ATTEND Family Medicine
PROC: F01ZBFZ Bed Mobility Assessment using Assistive, Adaptive, Supportive or Protective Equipment (ICD-10-PCS; principal; 2018-11-11)
PROC: F01ZCFZ Transfer Assessment using Assistive, Adaptive, Supportive or Protective Equipment (ICD-10-PCS; 2018-11-11)
PROC: F02Z0FZ Bathing/Showering Assessment using Assistive, Adaptive, Supportive or Protective Equipment (ICD-10-PCS; 2018-11-18)
PROC: F02Z3FZ Grooming/Personal Hygiene Assessment using Assistive, Adaptive, Supportive or Protective Equipment (ICD-10-PCS; 2018-11-18)
DX: S32.82XD Multiple fractures of pelvis without disruption of pelvic ring, subsequent encounter for fracture with routine healing (principal); Z79.01 Long term (current) use of anticoagulants
CPT/HCPCS: 36415; 85610; J1644; A9270-GY